=== PATIENT | male | born 1945 | race Caucasian/White ===

== ENCOUNTER 2023-04-15 11:51 | Inpatient (IN) | payer BC, OTHER ==
[~2023-04-15] VITALS: Ht 175.3 cm; Wt 81.6 kg
[2023-04-15] MEDS ORDERED: METOPROLOL (12:01)
[2023-04-15] MEDS ORDERED: ASPIRIN (12:01)
[2023-04-15 12:50] LABS: BASOPHILS # (AUTO) 0.2 K/UL (0.0-0.2); BASOPHILS % (AUTO) 1.3 % (0.0-2.0); EOSINOPHILS # (AUTO) 0.1 K/uL (0.0-0.7); EOSINOPHILS % (AUTO) 0.4 % (0.0-7.0); HEMATOCRIT 41.3 % (36.7-47.1); LYMPHOCYTES # (AUTO) 0.7 K/uL (0.8-4.8); LYMPHOCYTES % (AUTO) 5.1 % (20.5-51.5); MEAN CORPUSCULAR HEMOGLOBIN 31.3 uug (23.8-33.4); MEAN CORPUSCULAR HGB CONC 34 g/dL (32.5-36.3); MEAN CORPUSCULAR VOLUME 92.7 fL (73.0-96.2); MONOCYTES # (AUTO) 0.4 K/uL (0.1-1.30); MONOCYTES % (AUTO) 2.9 % (0.0-11.0); NEUTROPHILS # (AUTO) 13.1 K/uL (1.8-8.9); NEUTROPHILS % (AUTO) 90.3 % (38.5-71.5); PLATELET COUNT (AUTO) 251 K/uL (152-348); RED BLOOD CELL COUNT(AUTO) 4.46 MIL/uL (4.06-5.63); RED CELL DISTRIBUTION WIDTH 14.3 % (12.1-16.2); WHITE BLOOD COUNT (AUTO) 14.5 K/uL (3.6-10.2)
[2023-04-15 12:51] LABS: DIFFERENTIAL COMMENT 1
[2023-04-15 13:04] LABS: ALANINE AMINOTRANSFERASE 29 U/L (16-63); ALBUMIN 4.2 g/dL (3.4-5.0); ALKALINE PHOSPHATASE 76 U/L (50-136); ASPARTATE AMINOTRANSFERASE 38 U/L (15-37); BILIRUBIN,DIRECT 0.3 mg/dL (0.0-0.2); BILIRUBIN,TOTAL 1.3 mg/dL (0.2-1.0); CALCIUM 9.4 mg/dL (8.5-10.1); CARBON DIOXIDE 24 mmol/L (21-32); CHLORIDE 101 mmol/L (98-107); GLUCOSE 131 mg/dL (74-106); POTASSIUM 3.8 mmol/L (3.5-5.1); SODIUM SERUM 137 mmol/L (136-145); TOTAL PROTEIN, SERUM 7.8 g/dL (6.4-8.2); UREA NITROGEN, BLOOD 21 mg/dL (7-18)
[2023-04-15] MEDS ORDERED: KETOROLAC TROMETHAMINE 15 MG INJ ONE (13:35)
[2023-04-15] MEDS ORDERED: METO-357 PO (14:36)
[2023-04-15] MEDS: KETOROLAC TROMETHAMINE 15 MG INJ IM ONE (15:17)
[2023-04-15] MEDS ORDERED: ACETAMINOPHEN 325 MG TABLET PO PRN (18:45)
[2023-04-15] MEDS ORDERED: ONDANSETRON 4 MG/2 ML VIAL IV PRN (18:45)
[2023-04-15] MEDS ORDERED: MORPHINE SULFATE 2 MG/1 ML DISP.SYRIN IV PRN (18:45)
[2023-04-15 21:51] VITALS: BP 135/75; TEMP 98; O2SAT 94
[2023-04-15] MEDS: IV NS 1000 ML 1,000 ML IV PRN (22:32)
[2023-04-16 05:55] VITALS: BP 104/59; TEMP 99; O2SAT 96
[2023-04-16 07:55] LABS: CARBON DIOXIDE 26 mmol/L (21-32); CHLORIDE 106 mmol/L (98-107); GLUCOSE 115 mg/dL (74-106); MAGNESIUM 2.1 mg/dL (1.8-2.4); PHOSPHOROUS 2.9 mg/dL (2.5-4.9); POTASSIUM 3.4 mmol/L (3.5-5.1); SODIUM SERUM 142 mmol/L (136-145); UREA NITROGEN, BLOOD 27 mg/dL (7-18)
[2023-04-16 08:04] LABS: BASOPHILS % (AUTO) 0.1 % (0.0-2.0); HEMATOCRIT 34.9 % (36.7-47.1); LYMPHOCYTES # (AUTO) 1.3 K/uL (0.8-4.8); LYMPHOCYTES % (AUTO) 11.6 % (20.5-51.5); MEAN CORPUSCULAR HEMOGLOBIN 32.1 uug (23.8-33.4); MEAN CORPUSCULAR HGB CONC 35 g/dL (32.5-36.3); MEAN CORPUSCULAR VOLUME 93.2 fL (73.0-96.2); MONOCYTES # (AUTO) 0.6 K/uL (0.1-1.30); MONOCYTES % (AUTO) 5.4 % (0.0-11.0); NEUTROPHILS % (AUTO) 82.9 % (38.5-71.5); PLATELET COUNT (AUTO) 207 K/uL (152-348); RED BLOOD CELL COUNT(AUTO) 3.75 MIL/uL (4.06-5.63); RED CELL DISTRIBUTION WIDTH 14.4 % (12.1-16.2); WHITE BLOOD COUNT (AUTO) 10.9 K/uL (3.6-10.2)
[2023-04-16 08:05] VITALS: BP 116/66; TEMP 97.9; O2SAT 92
[2023-04-16 08:11] LABS: CALCIUM 8.6 mg/dL (8.5-10.1)
[2023-04-16 08:13] LABS: DIFFERENTIAL COMMENT 1
[2023-04-16] MEDS: PANTOPRAZOLE SODIUM 40 MG VIAL IV SCH (08:24)
[2023-04-16] MEDS: POTASSIUM CHLORIDE 50 ML IV SCH (09:25)
[2023-04-16] MEDS ORDERED: ASPI81TA31 PO (10:26)
[2023-04-16 11:17] VITALS: BP 126/78; TEMP 98.4; O2SAT 94
[2023-04-16] MEDS: METOPROLOL SUCCINATE XL 50 MG TAB.SR.24H PO SCH (11:47)
[2023-04-16] MEDS: ASPIRIN 81 MG TAB.CHEW PO SCH (11:47)
[2023-04-16 16:03] VITALS: BP 142/82; TEMP 97.6; O2SAT 95
[2023-04-16 19:45] VITALS: BP 118/66; TEMP 98.2; O2SAT 96
[2023-04-17] MEDS ORDERED: POLYVINYL ALCOHOL OPHT DROPS 15 ML BOTTLE ONE (04:59)
[2023-04-17 06:15] VITALS: BP 135/80; TEMP 98.1; O2SAT 96
[2023-04-17] MEDS: POLYVINYL ALCOHOL OPHT DROPS 15 ML BOTTLE EACHEYE PRN (06:36)
[2023-04-17 08:09] LABS: CALCIUM 8.3 mg/dL (8.5-10.1); CARBON DIOXIDE 25 mmol/L (21-32); CHLORIDE 107 mmol/L (98-107); GLUCOSE 114 mg/dL (74-106); POTASSIUM 3.7 mmol/L (3.5-5.1); SODIUM SERUM 141 mmol/L (136-145); UREA NITROGEN, BLOOD 21 mg/dL (7-18)
[2023-04-17] MEDS: ENOXAPARIN SODIUM 40 MG/0.4 ML DISP.SYRIN SQ SCH (10:48)
[2023-04-17 11:24] VITALS: BP 114/65; TEMP 98.2; O2SAT 94
[2023-04-17 15:10] VITALS: BP 142/81; TEMP 98; O2SAT 94
[2023-04-17 20:00] VITALS: BP 145/88; TEMP 98.1; O2SAT 93
[2023-04-18] MEDS: PANTOPRAZOLE SODIUM 40 MG TABLET.DR PO SCH (06:26)
[2023-04-18 06:27] LABS: BASOPHILS # (AUTO) 0.1 K/UL (0.0-0.2); BASOPHILS % (AUTO) 0.9 % (0.0-2.0); EOSINOPHILS # (AUTO) 0.2 K/uL (0.0-0.7); EOSINOPHILS % (AUTO) 2.1 % (0.0-7.0); HEMATOCRIT 32.6 % (36.7-47.1); HEMOGLOBIN 11.1 g/dL (12.5-16.3); LYMPHOCYTES # (AUTO) 1.6 K/uL (0.8-4.8); MEAN CORPUSCULAR HEMOGLOBIN 31.7 uug (23.8-33.4); MEAN CORPUSCULAR HGB CONC 34 g/dL (32.5-36.3); MEAN CORPUSCULAR VOLUME 92.9 fL (73.0-96.2); MONOCYTES # (AUTO) 0.9 K/uL (0.1-1.30); MONOCYTES % (AUTO) 9.4 % (0.0-11.0); NEUTROPHILS # (AUTO) 6.7 K/uL (1.8-8.9); NEUTROPHILS % (AUTO) 70.6 % (38.5-71.5); PLATELET COUNT (AUTO) 201 K/uL (152-348); RED BLOOD CELL COUNT(AUTO) 3.51 MIL/uL (4.06-5.63); WHITE BLOOD COUNT (AUTO) 9.4 K/uL (3.6-10.2)
[2023-04-18 06:48] LABS: CALCIUM 8.2 mg/dL (8.5-10.1); CARBON DIOXIDE 26 mmol/L (21-32); CHLORIDE 106 mmol/L (98-107); CREATININE 0.9 mg/dL (0.6-1.3); GLUCOSE 112 mg/dL (74-106); MAGNESIUM 1.7 mg/dL (1.8-2.4); POTASSIUM 4.1 mmol/L (3.5-5.1); SODIUM SERUM 141 mmol/L (136-145); UREA NITROGEN, BLOOD 16 mg/dL (7-18)
[2023-04-18 07:19] LABS: DIFFERENTIAL COMMENT 1
[2023-04-18] MEDS ORDERED: VANCOMYCIN 1000 MG VIAL ONE (09:24)
[2023-04-18] MEDS ORDERED: TRANEXAMIC ACID 1,000 MG/10 ML VIAL ONE ×2 (09:52→10:30)
[2023-04-18] MEDS ORDERED: EPHEDRINE SULFATE 50 MG/ML AMPUL ONE (11:55)
[2023-04-18] MEDS ORDERED: GLYCOPYRROLATE 0.2 MG/ML VIAL ONE (11:55)
[2023-04-18] MEDS ORDERED: PROPOFOL 200 MG/20 ML BOTTLE ONE (11:55)
[2023-04-18] MEDS ORDERED: ONDANSETRON 4 MG/2 ML VIAL ONE (11:55)
[2023-04-18] MEDS ORDERED: KETOROLAC TROMETHAMINE 30 MG INJ ONE (11:55)
[2023-04-18] MEDS ORDERED: LIDOCAINE-MPF 2% 5 ML VIAL ONE (11:55)
[2023-04-18] MEDS ORDERED: CEFAZOLIN 1 G VIAL ONE (11:55)
[2023-04-18] MEDS ORDERED: METOCLOPRAMIDE HCL 10 MG/2 ML VIAL ONE (11:55)
[2023-04-18] MEDS ORDERED: SUCCINYLCHOLINE CHLORIDE 200 MG/10 ML VIAL ONE (11:55)
[2023-04-18] MEDS ORDERED: DEXAMETHASONE SOD PHOSPHATE 4 MG INJ ONE (11:55)
[2023-04-18] MEDS ORDERED: MORPHINE SULFATE 4 MG/1 ML DISP.SYRIN IV PRN (13:00)
[2023-04-18] MEDS: MAGNESIUM SULFATE/D5W 100 ML IV SCH (14:33)
[2023-04-18] MEDS: IV D5W-0.45% NS +20 KCL 1,000 ML IV PRN (14:42)
[2023-04-18 16:14] VITALS: BP 127/77; TEMP 97.7; O2SAT 94
[2023-04-18] MEDS: CEFAZOLIN 1 G in IV DEXTROSE 5% 50 ML IV SCH (17:21)
[2023-04-18 22:27] VITALS: BP 101/62; TEMP 98.2
[2023-04-18 23:10] VITALS: O2SAT 94
[2023-04-19 07:51] LABS: BASOPHILS % (AUTO) 0.1 % (0.0-2.0); EOSINOPHILS # (AUTO) 0.1 K/uL (0.0-0.7); EOSINOPHILS % (AUTO) 0.6 % (0.0-7.0); HEMATOCRIT 30.1 % (36.7-47.1); HEMOGLOBIN 10.3 g/dL (12.5-16.3); LYMPHOCYTES # (AUTO) 1.9 K/uL (0.8-4.8); LYMPHOCYTES % (AUTO) 17.3 % (20.5-51.5); MEAN CORPUSCULAR HEMOGLOBIN 31.9 uug (23.8-33.4); MEAN CORPUSCULAR HGB CONC 34 g/dL (32.5-36.3); MEAN CORPUSCULAR VOLUME 93.2 fL (73.0-96.2); MONOCYTES # (AUTO) 1.2 K/uL (0.1-1.30); MONOCYTES % (AUTO) 11.3 % (0.0-11.0); NEUTROPHILS # (AUTO) 7.6 K/uL (1.8-8.9); NEUTROPHILS % (AUTO) 70.7 % (38.5-71.5); PLATELET COUNT (AUTO) 231 K/uL (152-348); RED BLOOD CELL COUNT(AUTO) 3.23 MIL/uL (4.06-5.63); RED CELL DISTRIBUTION WIDTH 14.5 % (12.1-16.2); WHITE BLOOD COUNT (AUTO) 10.7 K/uL (3.6-10.2)
[2023-04-19 07:56] LABS: DIFFERENTIAL COMMENT 1
[2023-04-19 08:18] LABS: CALCIUM 8.2 mg/dL (8.5-10.1); MAGNESIUM 2.4 mg/dL (1.8-2.4); PHOSPHOROUS 3.2 mg/dL (2.5-4.9); POTASSIUM 3.6 mmol/L (3.5-5.1)
[2023-04-19 08:58] VITALS: BP 134/77; TEMP 98.2
[2023-04-19] MEDS: HYDROCODONE/APAP 10-325 MG TABLET PO PRN (09:52)
[2023-04-19 11:27] VITALS: BP 123/69; TEMP 98.2; O2SAT 96
[2023-04-19] MEDS ORDERED: ENOX40DI SQ (14:54)
[2023-04-19 15:38] VITALS: BP 123/60; TEMP 97.9; O2SAT 96
== END 2023-04-19 19:30 | DRG 956 ==
LOC: ER 11:54 → MEDSURG3 18:35
PROVIDERS: ADMIT Nurse Practitioner Acute Care; ATTEND Nurse Practitioner Acute Care
PROC: 05HF33Z Insertion of Infusion Device into Left Cephalic Vein, Percutaneous Approach (ICD-10-PCS; 2023-04-16)
PROC: 0QS504Z Reposition Left Acetabulum with Internal Fixation Device, Open Approach (ICD-10-PCS; principal; 2023-04-18)
PROC: 0SRB0JA Replacement of Left Hip Joint with Synthetic Substitute, Uncemented, Open Approach (ICD-10-PCS; 2023-04-18)
PROC: 0QU707Z Supplement Left Upper Femur with Autologous Tissue Substitute, Open Approach (ICD-10-PCS; 2023-04-18)
DX: S32.402A Unspecified fracture of left acetabulum, initial encounter for closed fracture (principal); S72.052A Unspecified fracture of head of left femur, initial encounter for closed fracture; S32.502A Unspecified fracture of left pubis, initial encounter for closed fracture; K40.90 Unilateral inguinal hernia, without obstruction or gangrene, not specified as recurrent; W01.0XXA Fall on same level from slipping, tripping and stumbling without subsequent striking against object, initial encounter; Y92.010 Kitchen of single-family (private) house as the place of occurrence of the external cause; H11.9 Unspecified disorder of conjunctiva; D72.829 Elevated white blood cell count, unspecified; I10 Essential (primary) hypertension
CPT/HCPCS: 36415; 70450; 71045; 72125; 73501; 73502; 73503; 83735; 84100; 85025; 85730; 93307; A4663; C1776; C9113; G0378; J0330; J0690; J1100; J1650; J1885; J2270; J2405; J2765; J3370; J3475; J3480; J3490; J7040